=== PATIENT | male | born 1955 | race Caucasian/White ===

== ENCOUNTER 2022-12-23 20:18 | Emergency (ER) | payer MEDICARE ==
[2022-12-23] MEDS ORDERED: KEFLEX 500 MG PO ONE (20:51)
--- NOTE | 2022-12-23 20:52 | ERPHSYRPT ---
- History of Present Illness Time Seen by Provider: 12/23/22 20:25 Source: patient Exam Limitations: no limitations Patient Subjective Stated Complaint: fishing hook to rt index finger Triage Nursing Assessment: pt ambulated into the er; pt is axo x4; c/o fishing leur to rt index finger; wound is clear, dry; skin PDW; vitals wnl; no respiratory distress present; Physician History: 67 years old male up-to-date with tetanus presented in the ER with a fishhook in the right index finger pulp. Patient reports moderate to severe sharp pain with minimal movements of the hook. Allergies/Adverse Reactions: acetaminophen [From Tylenol] Allergy (Mild, Verified 12/23/22 20:23) Rash Home Medications: ALPRAZolam 1 MG [Xanax 1 mg] 1 mg PO TID PRN 12/23/22 [History] Hx Tetanus, Diphtheria Vaccination/Date Given: Yes Hx Influenza Vaccination/Date Given: No Hx Pneumococcal Vaccination/Date Given: No Travel Risk - International Travel Have you traveled outside of the country in past 3 weeks: No - Coronavirus Screening Are you exhibiting any of the following symptoms?: No Close contact with a COVID-19 positive Pt in past 14-21 Days: No - Vaccine Status Have you recieved a Covid-19 vaccination: No - Review of Systems Constitutional: No Symptoms Ears, Nose, & Throat: No Symptoms Respiratory: No Symptoms Cardiac: No Symptoms Musculoskeletal: Injury Skin: Skin Lesions Endocrine: No Symptoms - Past Medical History Pertinent Past Medical History: Yes Neurological History: No Pertinent History ENT History: No Pertinent History Cardiac History: No Pertinent History Respiratory History: No Pertinent History Endocrine Medical History: No Pertinent History Musculoskeletal History: No Pertinent History Psycho-Social History: Anxiety - Past Surgical History Past Surgical History: Yes Neuro Surgical History: No Pertinent History Cardiac: No Pertinent History Respiratory: No Pertinent History Gastrointestinal: No Pertinent History Genitourinary: No Pertinent History Musculoskeletal: Orthopedic Surgery Male Surgical History: No Pertinent History Other Surgical History: left knee. fatty tumor removal right chest wall. rt shouler - Social History Smoking Status: Former smoker Exposure to second hand smoke: No Drug Use: none Patient Lives Alone: No - Nursing Vital Signs Nursing Vital Signs: Initial Vital Signs Temperature 97.7 F 12/23/22 20:24 Pulse Rate 81 12/23/22 20:24 Respiratory Rate 16 12/23/22 20:24 Blood Pressure 137/72 12/23/22 20:24 O2 Sat by Pulse Oximetry 97 12/23/22 20:24 Pain Scale Pain Intensity 2 - Physical Exam General Appearance: no apparent distress Eye Exam: PERRL/EOMI Ears, Nose, Throat Exam: normal ENT inspection Neck Exam: normal inspection, full range of motion Respiratory Exam: normal breath sounds, lungs clear Cardiovascular Exam: regular rate/rhythm, normal heart sounds Extremity Exam: normal range of motion, pelvis stable, tenderness, other ([place] right index finger pulp. Angry but no exit. Shanti inside.) Neurologic Exam: alert, oriented x 3, cooperative Skin Exam: normal color SpO2 Interpretation: normal SpO2: 97 O2 Delivery: Room Air Procedures - Additional Procedures Progress: [place] removal. Time 2039. Location. Right index finger polyp Cleaning with chlorhexidine and alcohol swabs Anesthesia local lidocaine 1% 2 cc Pushed forward, shanti retrieved from skin and distal endoscopic, hook is removed intact. Patient tolerated procedure very well. - Progress Progress: improved Progress Note: 12/23/22 20:50 67 years old male up-to-date with tetanus presented in the ER with a fishhook in the right index finger pulp. Patient reports moderate to severe sharp pain with minimal movements of the hook. [place] was removed under local anesthesia. Patient tolerated procedure very well. We will give Keflex prophylactically for next few days. Recommended Tylenol/ibuprofen and outpatient follow-up. Discussed signs symptoms of worsening needing return to ER which she seems understanding. Stable for discharge. Counseled pt/family regarding: diagnosis, need for follow-up Medical Desision Making - Diagnostic Testing Diagnostic test were ordered, analyzed, and reviewed by me: No - Risk of complications Minimal Risk: Minimal risk of morbidity Low Risk: Low risk of morbidity from additional dx testing or treatment - Departure Departure Disposition: Home Clinical Impression: [place] injury to finger Condition: Stable Critical Care Time: No Referrals: NHUNG TOURE NP [Primary Care Provider] - Follow up with PCP 2 days Instructions: Wound Care (DC) Additional Instructions: Take Tylenol/ibuprofen as needed. Follow-up wound care instructions. Follow-up with primary care for reevaluation 2 days. Return to ER for increasing pain swelling redness discharge/difficulty movements of fingers etc. Prescriptions: Cephalexin Mh 500 mg [Keflex 500 mg] 500 mg PO TID 5 Days #15 cap
[2022-12-23] MEDS ORDERED: KEFLEX 500 MG ONE (21:04)
[2022-12-23 21:19] VITALS: BP 127/56; PULSE 86; O2SAT 98
== END 2022-12-23 21:18 | disposition home or self-care (01) ==
LOC: ED 20:18
DX: S61.240A Puncture wound with foreign body of right index finger without damage to nail, initial encounter (principal); W26.8XXA Contact with other sharp object(s), not elsewhere classified, initial encounter; W45.8XXA Other foreign body or object entering through skin, initial encounter; Z28.310 Unvaccinated for COVID-19
CPT/HCPCS: 10120; 99282; A9270-GY

== ENCOUNTER 2025-05-29 18:55 | Emergency (ER) | payer MEDICARE ==
[2025-05-29 19:09] VITALS: TEMP 98
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
[2025-05-29] MEDS ORDERED: PERCOCET TABLET 5/325MG ONE ×2 (19:40→20:18)
[2025-05-29] MEDS ORDERED: KEFLEX 500 MG ONE (19:41)
[2025-05-29] MEDS ORDERED: DELTASONE 20 MG ONE (19:41)
[2025-05-29] MEDS: DELTASONE 20 MG PO ONE (19:42)
[2025-05-29] MEDS: KEFLEX 500 MG PO ONE (19:42)
[2025-05-29] MEDS: PERCOCET TABLET 5/325MG PO STA ×2 (19:43→20:21)
[2025-05-29 20:03] VITALS: BP 147/76; PULSE 72; RESP 18
[2025-05-29 20:08] VITALS: O2SAT 99
--- NOTE | 2025-05-30 08:46 | XRAY ---
Indication: Pain and swelling following injury. Comparison: None 3 view right ankle demonstrates osteopenia and mild medial soft tissue swelling. No other bony, articular, or soft tissue abnormalities.
--- NOTE | 2025-05-30 08:46 | XRAY ---
Indication: Pain and swelling following injury. Comparison: None 3 nonweightbearing views right foot demonstrates osteopenia. No other bony, articular, or soft tissue abnormalities.
== END 2025-05-29 20:25 | disposition home or self-care (01) ==
LOC: ED 18:55
DX: L03.115 Cellulitis of right lower limb (principal); M79.671 Pain in right foot; Z79.891 Long term (current) use of opiate analgesic; Z79.899 Other long term (current) drug therapy